=== PATIENT | male | born 1995 | race African-American/Black ===

== ENCOUNTER 2025-02-23 17:00 | Emergency (ER) | payer SELFPAY ==
--- NOTE | ~2025-02-23 | XR_ITS ---
CHEST RADIOGRAPH, PA AND LATERAL CLINICAL HISTORY: SOB . COMPARISON: None available TECHNIQUE: PA and lateral views of the chest. FINDINGS The cardiomediastinal silhouette is unremarkable. The lungs are clear. IMPRESSION: No focal infiltrate or effusion. Reviewed, dictated and finalized at location A.
[2025-02-23 17:02] VITALS: BP 150/97; PULSE 93; RESP 20; TEMP 36.8; O2SAT 97
[2025-02-23 18:55] LABS: Influenza A QL RT-PCR Negative (Negative); Influenza B QL RT-PCR Negative (Negative); RSV RNA, RT-PCR Negative (Negative); SARS-CoV-2 RNA PCR Negative (Negative)
[2025-02-23 19:20] VITALS: PULSE 91; RESP 20
[2025-02-23] MEDS: ALBUTEROL SULFATE NEB 2.5 MG/3 ML INH 5 MG INHALATION (19:20)
[2025-02-23] MEDS: BENZONATATE 100 MG CAPSULE PO (19:30)
--- NOTE | 2025-02-23 19:38 | ED.GENADULT ---
HPI - General Adult General Chief complaint: Upper Respiratory Infection Stated complaint: Flu like sx Time Seen by Provider: 02/23/25 17:30 History of Present Illness HPI narrative: 29-year-old male presenting to the emergency department for evaluation for cough and congestion that started on Saturday. Patient does have history of asthma and does not have an albuterol inhaler. Patient states he has been taking Mucinex without 7- improvement. Patient states he has had some shortness of breath and chest tightness. Patient denies any cardiac history. Patient states he is not a smoker. Related Data Allergies Allergy/AdvReac Type Severity Reaction Status Date / Time No Known Allergies Allergy Verified 02/23/25 17:21 Review of Systems Review of Systems: All systems reviewed & are unremarkable except as noted in HPI and below Exam Narrative: APPEARANCE: Well appearing, no pain, no distress, well-nourished. HEAD: normocephalic, atraumatic. EYES: PERRLA/EOMI, conjunctivae clear. NOSE: Normal no drainage EARS:TMS clear with good light reflex. THROAT: Pharynx clear, no exudate. NECK: Supple. No adenopathy, no masses. RESPIRATORY: Airway patent, respirations nonlabored. Clear to auscultation bilaterally, no rales, rhonchi, wheezing. CARDIOVASCULAR: Regular rate and rhythm without murmurs rubs or gallops. ABDOMINAL: Soft, nontender, nondistended, normal bowel sounds MUSCULOSKELETAL: Moves all extremities. Strength/ROM intact, No edema, No calf tenderness. NEURO: Alert. Cranial nerves II through XII intact. Good gait. Good coordination SKIN: Warm, dry. Normal Color Course Vital Signs Vital signs: Vital Signs Temperature 98.2 F 02/23/25 17:02 Pulse Rate 93 02/23/25 17:02 Respiratory Rate 02/23/25 17:02 Blood Pressure 150/97 H 02/23/25 17:02 Pulse Oximetry 97 02/23/25 17:02 Oxygen Delivery Room Air 02/23/25 17:02 Temperature 98.2 F 02/23/25 17:02 Pulse Rate 98 02/23/25 19:44 Respiratory Rate 20 02/23/25 19:44 Blood Pressure 150/97 H 02/23/25 17:02 Pulse Oximetry 97 02/23/25 17:02 Oxygen Delivery Room Air 02/23/25 17:20 Medical Decision Making [facility] Narrative Medical decision making narrative: 29-year-old male presents emergency department for evaluation for cough and congestion. Patient was treated with albuterol inhaler did feel improved. Patient was negative for influenza RSV and for COVID. Chest x-ray shows no evidence acute cardiopulmonary abnormality. Patient was advised to take Tylenol and ibuprofen for fever body aches drink plenty of fluid and patient was provided as a new albuterol inhaler along with Tessalon Perles. Patient was encouraged of close follow-up with primary care physician. Differential Diagnosis Differential Diagnosis: COVID, RSV, influenza, pneumonia, pneumothorax Vital Signs Vital Signs: Vital Signs Temperature 98.2 F 02/23/25 17:02 Pulse Rate 93 02/23/25 17:02 Respiratory Rate 20 02/23/25 17:02 Blood Pressure 150/97 H 02/23/25 17:02 Pulse Oximetry 97 02/23/25 17:02 Oxygen Delivery Room Air 02/23/25 17:02 Temperature 98.2 F 02/23/25 17:02 Pulse Rate 98 02/23/25 19:44 Respiratory Rate 20 02/23/25 19:44 Blood Pressure 150/97 H 02/23/25 17:02 Pulse Oximetry 97 02/23/25 17:02 Oxygen Delivery Room Air 02/23/25 17:20 Lab Data Lab results reviewed: Yes I reviewed the patient's lab results. Labs: Lab Results 02/23/25 Range/Units 18:11 Influenza A (RT-PCR) Negative (Negative) Influenza B (RT-PCR) Negative (Negative) RSV (RT-PCR) Negative (Negative) SARS-CoV-2 RNA (RT-PCR) Negative (Negative) Imaging Data Radiologist's impression: Impressions Chest X-Ray 02/23/25 18:22 IMPRESSION: No focal infiltrate or effusion. Discharge Plan Discharge Clinical Impression: Viral infection Patient Disposition: Home Condition: Stable Instructions: Antibiotic Form, Viral Syndrome (ED) Additional Instructions: Tylenol and ibuprofen for fever body aches. Albuterol inhaler for shortness breath and Tessalon Perles for cough. Have close follow-up with your primary care physician. Patient Language: Romansh Prescriptions: New benzonatate 100 mg capsule 100 mg PO TID PRN (Reason: cough) Qty: 14 0RF albuterol sulfate 90 mcg/actuation HFA aerosol inhaler 1 puff inhalation QID Qty: 6.7 0RF Follow-up/Referrals: PHYSICIAN NOT ON STAFF,NONSTAFF [Primary Care Provider] - Stand Alone Forms: Work/School Release IP
[2025-02-23 19:44] VITALS: PULSE 98; RESP 20
== END 2025-02-23 19:54 | disposition home or self-care (01) ==
PROVIDERS: Emergency Provider Emergency Medicine
DX: B34.9 Viral infection, unspecified (principal); J45.909 Unspecified asthma, uncomplicated; Z20.822 Contact with and (suspected) exposure to COVID-19
CPT/HCPCS: 71046; 87637; 94640; 99283; A9270